=== PATIENT | female | born 1940 | race African-American/Black ===

== ENCOUNTER 2020-03-07 07:42 | Inpatient (IN) ==
[2020-03-07 09:54] LABS: Hematocrit 39.6 VOL% (35.7-47.0); Hemoglobin 12.4 GM/DL (12.0-16.0); Immature Granulocytes % 0.4 %; Immature Granulocytes Absolute 0.02 #; Lymphocytes # 0.4 10*3/uL (1.4-4.0); Mean Corpuscular HGB Conc 31.3 GM/DL (32-36); Mean Corpuscular Volume 90.2 FL (87-102); Mean Platelet Volume 12.4 FL (9.6-12.0); Monocytes % 6.6 % (1.7-12.7); Platelet Count 72 T/CUMM (130-400); Red Blood Count 4.39 MC/CUMM (3.8-5.5); Red Cell Distribution Width 13.5 % (9.3-17.3); White Blood Count 5.1 T/CUMM (4-12)
[2020-03-07 10:04] LABS: Bilirubin,Total 0.5 MG/DL (0.2-1.0); Calcium 8.2 MG/DL (8.5-10.1); Osmolality,Calculated 288.5 MOS/KG (273-304); Potassium 3.7 MMOL/L (3.5-5.1)
[2020-03-07] MEDS ORDERED: SODIUM CHLORIDE 0.9% 500 ML IV STA (12:38)
[2020-03-07] MEDS ORDERED: LACTULOSE 20 GM/30 ML UDCUP PO PRN (15:32)
[2020-03-07] MEDS ORDERED: DOCUSATE SODIUM 100 MG CAPSULE PO PRN (15:32)
[2020-03-07] MEDS ORDERED: DEXTROSE 50% 25 GM/50 ML VIAL IV PRN (15:32)
[2020-03-07] MEDS ORDERED: GLUCAGON 1 MG VIAL IM PRN (15:32)
[2020-03-07] MEDS ORDERED: ONDANSETRON 4 MG/2 ML VIAL IV PRN (15:32)
[2020-03-07] MEDS ORDERED: AZITHROMYCIN INJ 500 MG in SODIUM CHLORIDE 0.9% 250 ML IV ONE (15:43)
[2020-03-07] MEDS: SODIUM CHLORIDE 0.9% 1,000 ML IV SCH (18:15)
[2020-03-07] MEDS: INSULIN LISPRO 100 UNIT/ML SUBCUT SCH ×2 (18:42→20:40)
[2020-03-07] MEDS: FAMOTIDINE 20 MG TABLET PO SCH (20:40)
[2020-03-07] MEDS: ACETAMINOPHEN 325 MG TABLET PO PRN (20:40)
[2020-03-07] MEDS: ASCORBIC ACID 500 MG TABLET PO SCH (20:40)
[2020-03-07] MEDS: ENOXAPARIN 40 MG/0.4 ML SYRINGE SUBCUT SCH (20:40)
[2020-03-08 05:23] LABS: Hematocrit 38.9 VOL% (35.7-47.0); Hemoglobin 11.7 GM/DL (12.0-16.0); Immature Granulocytes % 0.6 %; Immature Granulocytes Absolute 0.02 #; Lymphocytes # 0.6 10*3/uL (1.4-4.0); Lymphocytes % 17.4 % (21.3-54.2); Mean Corpuscular HGB Conc 30.1 GM/DL (32-36); Mean Corpuscular Volume 93.1 FL (87-102); Mean Platelet Volume 11.7 FL (9.6-12.0); Monocytes % 7.7 % (1.7-12.7); Neutrophils % 74.3 % (38.7-73.9); Platelet Count 83 T/CUMM (130-400); Red Blood Count 4.18 MC/CUMM (3.8-5.5); Red Cell Distribution Width 13.4 % (9.3-17.3); White Blood Count 3.6 T/CUMM (4-12)
[2020-03-08] MEDS: SODIUM CHLORIDE 0.9% 1,000 ML IV SCH ×3 (05:31→22:53)
[2020-03-08 05:45] LABS: Hypochromasia 1+; Microcytosis 1+; Platelet Estimate Decreased
[2020-03-08 05:48] LABS: Ferritin 224.3 ng/ml (8-252)
[2020-03-08 06:02] LABS: Albumin 2.5 G/DL (3.4-5.0); Bilirubin,Total 0.6 MG/DL (0.2-1.0); Calcium 8.2 MG/DL (8.5-10.1); Osmolality,Calculated 288.8 MOS/KG (273-304); Potassium 4.2 MMOL/L (3.5-5.1); Risk Ratio 2.76; Thyroid Stimulating Hormone 0.276 uIU/ml (0.358-3.74); Total Protein 6.2 G/DL (6.4-8.3); VLDL CHOLESTEROL 14.6 MG/DL
[2020-03-08] MEDS: ENOXAPARIN 40 MG/0.4 ML SYRINGE SUBCUT SCH ×2 (08:12→21:54)
[2020-03-08] MEDS: INSULIN LISPRO 100 UNIT/ML SUBCUT SCH ×5 (08:13→21:56)
[2020-03-08] MEDS: ASCORBIC ACID 500 MG TABLET PO SCH ×2 (08:13→21:53)
[2020-03-08] MEDS: SERTRALINE 50 MG TABLET PO SCH (08:13)
[2020-03-08] MEDS: DEXAMETHASONE 4 MG/1 ML VIAL IV SCH (08:13)
[2020-03-08] MEDS: ZINC GLUCONATE 50 MG TABLET PO SCH (08:13)
[2020-03-08] MEDS: AZITHROMYCIN 250 MG TABLET PO SCH (08:14)
[2020-03-08] MEDS: CHOLECALCIFEROL 1,000 UNIT TABLET PO SCH (08:14)
[2020-03-08] MEDS: FAMOTIDINE 20 MG TABLET PO SCH ×2 (08:14→21:53)
[2020-03-08] MEDS ORDERED: MAGNESIUM SULF RIDER 4 GM in PREMIX 1 EACH IV ONE (09:04)
[2020-03-08] MEDS ORDERED: MAGNESIUM SULF RIDER 2 GM in PREMIX 1 EACH IV ONE ×2 (09:12→10:13)
[2020-03-09 05:39] LABS: Hematocrit 35.6 VOL% (35.7-47.0); Hemoglobin 11.1 GM/DL (12.0-16.0); Immature Granulocytes % 0.4 %; Immature Granulocytes Absolute 0.02 #; Lymphocytes # 0.8 10*3/uL (1.4-4.0); Lymphocytes % 17.9 % (21.3-54.2); Mean Corpuscular HGB Conc 31.2 GM/DL (32-36); Mean Corpuscular Volume 90.1 FL (87-102); Mean Platelet Volume 12.3 FL (9.6-12.0); Monocytes % 6.9 % (1.7-12.7); Neutrophils % 74.8 % (38.7-73.9); Platelet Count 107 T/CUMM (130-400); Red Blood Count 3.95 MC/CUMM (3.8-5.5); Red Cell Distribution Width 13.3 % (9.3-17.3); White Blood Count 4.6 T/CUMM (4-12)
[2020-03-09 05:59] LABS: Albumin 2.1 G/DL (3.4-5.0); Bilirubin,Total 0.4 MG/DL (0.2-1.0); Calcium 7.8 MG/DL (8.5-10.1); Osmolality,Calculated 278.7 MOS/KG (273-304); Potassium 3.7 MMOL/L (3.5-5.1); Total Protein 5.5 G/DL (6.4-8.3)
[2020-03-09 06:00] LABS: Ferritin 252.9 ng/ml (8-252)
[2020-03-09] MEDS: ENOXAPARIN 40 MG/0.4 ML SYRINGE SUBCUT SCH ×2 (08:29→22:20)
[2020-03-09] MEDS: DEXAMETHASONE 4 MG/1 ML VIAL IV SCH (08:29)
[2020-03-09] MEDS: FAMOTIDINE 20 MG TABLET PO SCH ×2 (08:29→22:20)
[2020-03-09] MEDS: AZITHROMYCIN 250 MG TABLET PO SCH (08:30)
[2020-03-09] MEDS: SERTRALINE 50 MG TABLET PO SCH (08:30)
[2020-03-09] MEDS: ZINC GLUCONATE 50 MG TABLET PO SCH (08:30)
[2020-03-09] MEDS: ASCORBIC ACID 500 MG TABLET PO SCH ×2 (08:30→22:19)
[2020-03-09] MEDS: CHOLECALCIFEROL 1,000 UNIT TABLET PO SCH (08:30)
[2020-03-09] MEDS: INSULIN LISPRO 100 UNIT/ML SUBCUT SCH ×4 (08:31→22:20)
[2020-03-09] MEDS: SODIUM CHLORIDE 0.9% 1,000 ML IV SCH (12:03)
[2020-03-09] MEDS ORDERED: SODIUM CHLORIDE 0.9% 1,000 ML IV PRN (14:28)
[2020-03-10] MEDS: SODIUM CHLORIDE 0.9% 1,000 ML IV SCH ×2 (01:33→17:05)
[2020-03-10 05:06] LABS: Eosinophils % 0.2 % (0.00-10.9); Hematocrit 35.6 VOL% (35.7-47.0); Hemoglobin 11.1 GM/DL (12.0-16.0); Immature Granulocytes % 0.4 %; Immature Granulocytes Absolute 0.02 #; Lymphocytes # 0.6 10*3/uL (1.4-4.0); Lymphocytes % 12.5 % (21.3-54.2); Mean Corpuscular HGB Conc 31.2 GM/DL (32-36); Mean Corpuscular Volume 89.7 FL (87-102); Mean Platelet Volume 12.2 FL (9.6-12.0); Monocytes % 8.3 % (1.7-12.7); Neutrophils % 78.6 % (38.7-73.9); Platelet Count 115 T/CUMM (130-400); Red Blood Count 3.97 MC/CUMM (3.8-5.5); Red Cell Distribution Width 13.2 % (9.3-17.3); White Blood Count 4.6 T/CUMM (4-12)
[2020-03-10 05:28] LABS: Hypochromasia 1+; Microcytosis 1+; Platelet Estimate Decreased
[2020-03-10 05:33] LABS: Bilirubin,Total 0.5 MG/DL (0.2-1.0); Calcium 7.9 MG/DL (8.5-10.1); Osmolality,Calculated 288.8 MOS/KG (273-304); Potassium 4.3 MMOL/L (3.5-5.1); Total Protein 5.5 G/DL (6.4-8.3)
[2020-03-10] MEDS: CHOLECALCIFEROL 1,000 UNIT TABLET PO SCH (09:30)
[2020-03-10] MEDS: ZINC GLUCONATE 50 MG TABLET PO SCH (09:30)
[2020-03-10] MEDS: FAMOTIDINE 20 MG TABLET PO SCH ×2 (09:30→21:09)
[2020-03-10] MEDS: AZITHROMYCIN 250 MG TABLET PO SCH (09:30)
[2020-03-10] MEDS: ASCORBIC ACID 500 MG TABLET PO SCH ×2 (09:30→21:09)
[2020-03-10] MEDS: SERTRALINE 50 MG TABLET PO SCH (09:30)
[2020-03-10] MEDS: INSULIN LISPRO 100 UNIT/ML SUBCUT SCH ×4 (09:49→21:09)
[2020-03-10] MEDS: ENOXAPARIN 40 MG/0.4 ML SYRINGE SUBCUT SCH ×2 (09:49→21:09)
[2020-03-10] MEDS: DEXAMETHASONE 4 MG/1 ML VIAL IV SCH (09:49)
[2020-03-10] MEDS: MELATONIN 3 MG TABLET PO PRN (21:09)
[2020-03-10] MEDS: ACETAMINOPHEN 325 MG TABLET PO PRN (21:09)
[2020-03-10] MEDS: risperiDONE 0.25 MG TABLET PO PRN (21:09)
[2020-03-11 04:42] LABS: Eosinophils % 0.3 % (0.00-10.9); Hematocrit 35.4 VOL% (35.7-47.0); Immature Granulocytes % 0.8 %; Immature Granulocytes Absolute 0.03 #; Lymphocytes # 0.7 10*3/uL (1.4-4.0); Lymphocytes % 17.5 % (21.3-54.2); Mean Corpuscular HGB Conc 31.1 GM/DL (32-36); Mean Corpuscular Volume 89.8 FL (87-102); Mean Platelet Volume 11.7 FL (9.6-12.0); Neutrophils % 71.4 % (38.7-73.9); Platelet Count 145 T/CUMM (130-400); Red Blood Count 3.94 MC/CUMM (3.8-5.5); Red Cell Distribution Width 13.2 % (9.3-17.3); White Blood Count 3.7 T/CUMM (4-12)
[2020-03-11 04:58] LABS: Albumin 2.3 G/DL (3.4-5.0); Bilirubin,Total 0.5 MG/DL (0.2-1.0); Calcium 7.9 MG/DL (8.5-10.1); Potassium 3.2 MMOL/L (3.5-5.1); Total Protein 5.7 G/DL (6.4-8.3)
[2020-03-11 05:07] LABS: Hypochromasia 1+; Lymphocytes 13 % (20-55); Microcytosis 1+; Platelet Estimate Adequate; Segmented Neutrophils 79 % (50-85); Total Cells Counted 100
[2020-03-11] MEDS: DEXAMETHASONE 4 MG/1 ML VIAL IV SCH (08:50)
[2020-03-11] MEDS: AZITHROMYCIN 250 MG TABLET PO SCH (08:51)
[2020-03-11] MEDS: ASCORBIC ACID 500 MG TABLET PO SCH ×2 (08:51→20:00)
[2020-03-11] MEDS: ENOXAPARIN 40 MG/0.4 ML SYRINGE SUBCUT SCH ×2 (08:51→20:01)
[2020-03-11] MEDS: CHOLECALCIFEROL 1,000 UNIT TABLET PO SCH (08:51)
[2020-03-11] MEDS: FAMOTIDINE 20 MG TABLET PO SCH ×2 (08:51→20:00)
[2020-03-11] MEDS: SERTRALINE 50 MG TABLET PO SCH (08:51)
[2020-03-11] MEDS: SODIUM CHLORIDE 0.9% 1,000 ML IV SCH ×2 (09:30→18:33)
[2020-03-11] MEDS: INSULIN LISPRO 100 UNIT/ML SUBCUT SCH ×5 (09:31→20:00)
[2020-03-11] MEDS: ZINC GLUCONATE 50 MG TABLET PO SCH (10:14)
[2020-03-11] MEDS: POTASSIUM CHLORIDE 20 MEQ/15 ML UDCUP PER TUBE PRN ×4 (11:16→19:15)
[2020-03-11] MEDS: risperiDONE 0.25 MG TABLET PO PRN (20:00)
[2020-03-11] MEDS: MELATONIN 3 MG TABLET PO PRN (20:01)
[2020-03-11] MEDS: ACETAMINOPHEN 325 MG TABLET PO PRN (20:01)
[2020-03-12] MEDS: SODIUM CHLORIDE 0.9% 1,000 ML IV SCH (02:00)
[2020-03-12] MEDS: DEXAMETHASONE 4 MG/1 ML VIAL IV SCH (08:33)
[2020-03-12] MEDS: CHOLECALCIFEROL 1,000 UNIT TABLET PO SCH (08:33)
[2020-03-12] MEDS: ENOXAPARIN 40 MG/0.4 ML SYRINGE SUBCUT SCH (08:33)
[2020-03-12] MEDS: SERTRALINE 50 MG TABLET PO SCH (08:34)
[2020-03-12] MEDS: ASCORBIC ACID 500 MG TABLET PO SCH (08:34)
[2020-03-12] MEDS: ZINC GLUCONATE 50 MG TABLET PO SCH (08:34)
[2020-03-12] MEDS: INSULIN LISPRO 100 UNIT/ML SUBCUT SCH ×2 (08:34→12:00)
[2020-03-12] MEDS: FAMOTIDINE 20 MG TABLET PO SCH (08:34)
[2020-03-12 09:08] LABS: Basophils % 0.3 % (0.0-0.8); Eosinophils % 0.5 % (0.00-10.9); Hematocrit 37.8 VOL% (35.7-47.0); Hemoglobin 11.8 GM/DL (12.0-16.0); Immature Granulocytes Absolute 0.04 #; Lymphocytes # 0.6 10*3/uL (1.4-4.0); Mean Corpuscular HGB Conc 31.2 GM/DL (32-36); Mean Corpuscular Volume 89.4 FL (87-102); Mean Platelet Volume 11.2 FL (9.6-12.0); Monocytes % 8.9 % (1.7-12.7); Neutrophils % 73.3 % (38.7-73.9); Platelet Count 160 T/CUMM (130-400); Red Blood Count 4.23 MC/CUMM (3.8-5.5); Red Cell Distribution Width 13.2 % (9.3-17.3); White Blood Count 3.9 T/CUMM (4-12)
[2020-03-12 09:32] LABS: Alanine Aminotransferase 34 U/L (13-56); Albumin 2.3 G/DL (3.4-5.0); Alkaline Phosphatase 122 U/L (45-117); Aspartate Amino Transferase 61 U/L (0-37); Bilirubin,Total < 0.39 MG/DL (0.2-1.0); Blood Urea Nitrogen 10 MG/DL (7-18); Carbon Dioxide 32 MMOL/L (21-32); Estimated Glom Filtration Rate 55 ML/MIN; Ferritin 237.1 ng/ml (8-252); Glucose 127 MG/DL (74-106); Osmolality,Calculated 281.3 MOS/KG (273-304); Potassium 3.8 MMOL/L (3.5-5.1); Sodium 141 MMOL/L (136-145); Total Protein 6.2 G/DL (6.4-8.3)
[2020-03-12] MEDS ORDERED: BISACODYL 10 MG SUPP RECTAL ONE (10:29)
[2020-03-12 13:11] VITALS: BP 158/76
[2020-03-13] MEDS ORDERED: DEXAMETHASONE 4 MG TABLET PO SCH (09:00)
== END 2020-03-12 13:45 | disposition swing bed (61) | DRG 178 ==
LOC: N.ED 07:42 → SUATTDRO 15:32 → N.EDINP 15:32 → N.2E 18:02
PROVIDERS: ADMIT Internal Medicine; ATTEND Internal Medicine